=== PATIENT | female | born 1950 | race Caucasian/White ===

== ENCOUNTER 2017-05-02 09:05 | Observation (INO) ==
[2017-05-02] MEDS ORDERED: Aspirin 325 MG TABLET PO ONE (09:13)
--- NOTE | 2017-05-02 09:29 | Emergency Department Note ---
Disposition Clinical Impression: Chest pain Qualifiers: Chest pain type: unspecified Qualified Code(s): R07.9 - Chest pain, unspecified Disposition: Admitted As Inpatient Condition: Good General Adult HPI - General Chief complaint: ED Chest Pain Stated complaint: CP Time Seen by Provider: 05/02/17 09:11 Source: patient Limitations: no limitations Nursing Notes Reviewed: Yes Vital Signs Reviewed: Yes - History of Present Illness HPI Narrative: 66-year-old female who reports for the last week she has developed intermittent chest pain. The chest pain lasts up to 5 minutes and then resolves on its own. She has not had this before. She does not have any cardiac history. She reports her only past medical history is asthma. She denies any cough or shortness of breath associated with it. She denies any fever or any other illness at this time. She reports that she has been procrastinating to come into the emergency department because it goes away so quickly. She does have a family history of cardiac disease. She denies having hyperlipidemia but admits to not seen doctors very often. She is currently 100% pain-free. Pain Scale: 0 Improves with: nothing Worsens with: nothing Associated symptoms: Reports: denies other symptoms Treatments Prior to Arrival: none - Related Data Home Medications Medication Instructions Recorded Confirmed Cetirizine HCl [All Day Allergy] 10 mg PO DAILY 05/02/17 05/02/17 Montelukast [Singulair] 10 mg PO DAILY 05/02/17 05/02/17 Allergies Allergy/AdvReac Type Severity Reaction Status Date / Time acetaminophen [From Tylenol] Allergy Anaphylaxis Verified 05/02/17 10:15 All systems ED: reviewed and negative except as stated. Constitutional: Denies: fever Eyes: Denies: vision change ENT ED: Denies: throat pain Cardiovascular: Reports: chest pain Respiratory: Denies: cough Gastrointestinal: Denies: abdominal pain Musculoskeletal: Denies: back pain Integumentary: Denies: rash Neurological: Denies: headache Endocrine: Denies: fatigue Past Medical History - Past Medical History Medical history: Reports: asthma - Social History Smoking Status: Current every day smoker Physical Exam - General Limitations: no limitations General appearance: alert, in no apparent distress - Head Head exam: atraumatic - Eye Eye exam: Present: normal appearance, PERRL - ENT ENT exam: normal exam - Neck Neck exam: Present: normal inspection - Chest Chest inspection: Present: normal inspection - Respiratory Respiratory exam: Present: normal lung sounds bilaterally. Absent: respiratory distress - Cardiovascular Cardiovascular exam: Present: regular rate, normal rhythm - Abdominal Exam Abdominal exam: Present: soft, Non-Tender - Extremities Exam Extremities exam: Present: normal inspection - Neurological Exam Neurological exam: Present: alert, oriented X3 - Psychiatric Psychiatric exam: Present: normal affect, normal mood Course Course Narrative: She does not have a history of cardiac disease however she has been having intermittent chest discomfort that is new in onset. Her EKG does show some mild new ST depression in the lateral leads. Otherwise unremarkable EKG. due to her age with an onset chest pain and no recent workup and new changes on the EKG we will admit her to the hospital for chest pain rule out. Labwork unremarkable. Will admit. ASA given. Layne accecpts Vital Signs Temperature 98.6 F 05/02/17 09:06 Pulse Rate 95 05/02/17 09:06 Respiratory Rate 18 05/02/17 09:06 Blood Pressure 171/90 05/02/17 09:06 O2 Sat by Pulse Oximetry 97 05/02/17 09:06 Temperature 98.6 F 05/02/17 09:06 Pulse Rate 95 05/02/17 09:06 Respiratory Rate 18 05/02/17 10:33 Blood Pressure 166/84 05/02/17 10:33 O2 Sat by Pulse Oximetry 96 05/02/17 09:17 Oxygen Delivery Oxygen Delivery Room Air Medical Decision Making - Medical Records Medical records reviewed: Yes I reviewed the patient's medical records. - Lab Data Lab results reviewed: Yes I reviewed the patient's lab results. Result diagrams: 05/02/17 09:23 05/02/17 09:23 Lab Results 05/02/17 05/02/17 05/02/17 Range/Units 09:23 09:23 09:23 WBC 10.1 (4.3-11.1) K/mcL RBC 5.56 H (3.82-4.97) M/mcL Hgb 16.3 H (11.5-15.4) g/dL Hct 49.9 H (35.3-44.9) % MCV 89.7 (83.0-100.0) fL MCH 29.3 (28.0-33.3) pg MCHC 32.7 (31.6-35.5) g/dL RDW 14.1 (11.5-14.5) % Plt Count 315 (140-400) K/mcL MPV 9.0 L (9.4-12.4) fL Immature Gran % 0.3 (0-4) % Seg Neutrophils % 51.9 % Lymphocytes % 36.6 % Monocytes % 7.8 % Eosinophils % 2.7 % Basophils % 0.7 % Neutrophils # 5.2 (1.6-8.9) K/mcL Lymphocytes # 3.7 (0.6-4.6) K/mcL Monocytes # 0.8 (0.0-1.3) K/mcL Eosinophils # 0.3 (0.0-0.6) K/mcL Basophils # 0.1 (0.0-0.2) K/mcL PT 10.4 (9.4-12.1) Seconds INR 1.0 APTT 31.1 (26.0-36.0) Seconds Sodium (136-145) mEq/L Potassium (3.5-5.1) mEq/L Chloride (98-107) mEq/L Carbon Dioxide (23-29) mEq/L BUN (8-23) mg/dL Creatinine (0.60-1.20) mg/dL Est GFR ( Amer) (> 60) Est GFR (Non-Af Amer) (> 60) BUN/Creatinine Ratio (6-26) Glucose (70-105) mg/dL Calculated Osmolality (280-300) Calcium (8.6-10.3) mg/dL Troponin I (< 0.04) ng/mL B-Natriuretic Peptide 15 (Less than 100) pg/mL 05/02/17 05/02/17 Range/Units 09:23 09:23 WBC (4.3-11.1) K/mcL RBC (3.82-4.97) M/mcL Hgb (11.5-15.4) g/dL Hct (35.3-44.9) % MCV (83.0-100.0) fL MCH (28.0-33.3) pg MCHC (31.6-35.5) g/dL RDW (11.5-14.5) % Plt Count (140-400) K/mcL MPV (9.4-12.4) fL Immature Gran % (0-4) % Seg Neutrophils % % Lymphocytes % % Monocytes % % Eosinophils % % Basophils % % Neutrophils # (1.6-8.9) K/mcL Lymphocytes # (0.6-4.6) K/mcL Monocytes # (0.0-1.3) K/mcL Eosinophils # (0.0-0.6) K/mcL Basophils # (0.0-0.2) K/mcL PT (9.4-12.1) Seconds INR APTT (26.0-36.0) Seconds Sodium 136 (136-145) mEq/L Potassium 3.8 (3.5-5.1) mEq/L Chloride 104 (98-107) mEq/L Carbon Dioxide 27 (23-29) mEq/L BUN 6 L (8-23) mg/dL Creatinine 0.83 (0.60-1.20) mg/dL Est GFR ( Amer) > 60 (> 60) Est GFR (Non-Af Amer) > 60 (> 60) BUN/Creatinine Ratio 7 (6-26) Glucose 101 (70-105) mg/dL Calculated Osmolality 280 (280-300) Calcium 9.5 (8.6-10.3) mg/dL Troponin I < 0.03 (< 0.04) ng/mL B-Natriuretic Peptide (Less than 100) pg/mL - Radiology Data Radiology results reviewed: Yes I reviewed the patient's radiology results. - EKG Data EKG #1 EKG attestation: Yes I reviewed and interpreted this EKG. EKG shows normal: sinus rhythm Rate: normal Rhythm: NSR [place]/QRS: normal ST segment depression in: II, v5, v6 Attestation Statement - Attestation Attestation: I examined this patient and my medical decision-making was reviewed with the Resident Physician. I agree with the documented findings, disposition and treatment plan as described except to the extent set forth below. Patient with chest pain. Patient describes a left-sided intermittent pressure. It last for a few minutes at a time and resolves on its own. She is currently not having it. No history of coronary disease. On examination she is in no acute distress. Her lungs are clear. Heart regular rate and rhythm. Plan. The patient is chest pain-free here. She received an aspirin. Her EKG has some new mild anterolateral ST depressions. Troponin is negative. She will be admitted for further cardiac workup.
[2017-05-02 09:33] LABS: Basophils # 0.1 K/mcL (0.0-0.2); Basophils % 0.7 %; Eosinophils # 0.3 K/mcL (0.0-0.6); Eosinophils % 2.7 %; Hematocrit 49.9 % (35.3-44.9); Hemoglobin 16.3 g/dL (11.5-15.4); Immature Granulocytes % 0.3 % (0-4); Lymphocytes # 3.7 K/mcL (0.6-4.6); Lymphocytes % 36.6 %; Mean Corpuscular HGB Conc 32.7 g/dL (31.6-35.5); Mean Corpuscular Hemoglobin 29.3 pg (28.0-33.3); Mean Corpuscular Volume 89.7 fL (83.0-100.0); Monocytes # 0.8 K/mcL (0.0-1.3); Monocytes % 7.8 %; Neutrophils # 5.2 K/mcL (1.6-8.9); Platelet Count 315 K/mcL (140-400); Red Blood Count 5.56 M/mcL (3.82-4.97); Red Cell Distribution Width 14.1 % (11.5-14.5); Segmented Neutrophils % 51.9 %
[2017-05-02 09:38] LABS: Prothrombin Time 10.4 Seconds (9.4-12.1)
[2017-05-02 09:41] LABS: Activated Partial Thrombo Time 31.1 Seconds (26.0-36.0)
[2017-05-02 09:46] LABS: BUN/Creatinine Ratio 7 (6-26); Blood Urea Nitrogen 6 mg/dL (8-23); Calcium 9.5 mg/dL (8.6-10.3); Carbon Dioxide 27 mEq/L (23-29); Chloride 104 mEq/L (98-107); Glucose 101 mg/dL (70-105); Osmolality,Calculated 280 (280-300); Potassium 3.8 mEq/L (3.5-5.1); Sodium 136 mEq/L (136-145); eGFR For African Americans > 60 (> 60); eGFR For Non-African Americans > 60 (> 60)
[2017-05-02] MEDS ORDERED: Naloxone 0.4 MG/ML INJ IVP PRN (11:23)
[2017-05-02] MEDS ORDERED: *HR* Morphine 2 MG/ML SYRINGE IVP PRN (11:23)
--- NOTE | 2017-05-02 11:32 | Internal Med History&Physical ---
Date of Encounter: 05/02/17 Time of Encounter: 11:28 Assessment and Plan (1) Chest pain Current visit: Yes Status: Acute 66/female MALIK score: 1 Singulair is the only outpatient medication. Chronic smoker. Admitted for chest pain to rule out ACS protocol. Denies abdominal tenderness/chest wall tenderness. Assessment: Chest pain to rule out acute coronary syndrome. Plan: Admit as observation: Chest pain to rule out ACS protocol. Cardiac diet. Nothing by mouth from midnight. Aspirin 81/metoprolol 12.5/Lipitor 20 Resume home medication. Echocardiogram. Cycle troponin. Repeat labs tomorrow along with hemoglobin A1c. 3 troponins negative and echocardiogram within normal limit then please consider tomorrow stress test. Of note: I have examined this patient in the emergency room #5. Plan of care discussed with the patient. Patient verbalizes understanding. Qualifiers: Chest pain type: unspecified Qualified Code(s): R07.9 - Chest pain, unspecified (2) Obesity (BMI 30.0-34.9) Current visit: Yes Status: Acute Patient need outpatient close monitoring of her body weight. (3) Tobacco consumption Current visit: Yes Status: Acute Discussed at length regarding suggestion of smoking. Patient promises that she will think about the same. (4) DVT prophylaxis Current visit: Yes Status: Acute SCD Medical decision-making: This patient has [id number] risk of worsening in spite of being on appropriate medication due to the underlying mild comorbid conditions Internal Medicine - H&P: HPI Chief complaint: chest pain Admitted From: Emergency Dept Plans for Post Hospital Care: Home History of present illness: PCP: Dr Homero Kahn Brief PMH : ? Bronchial Asthma or allergies. ( visit PCP once a year for singulair) HPI: Patient was complaining of left-sided precordial chest pain which was ongoing for more than a week. Patient claims that in the last 48 hours the intensity and frequency of pain got progressively worse. Patient has sharp, nonradiating, localized, precordial chest pain which was worsening in last 48 hours. Patient claims that the pain gets better only after burping. Patient denies shortness of breath, dizziness, abdominal event, vomiting, diarrhea, dysuria or weakness in extremities. Patient does have a strong family history of for cardiac disease. Workup in the ER: Basic labs were drawn. Initial troponin was negative. Renal function as well as white blood cell count/platelet within normal limits. EKG does show mild ST depression. Reason for admission: Chest pain to rule out ACS. Family history: Strong family history for coronary artery disease. Past Med Surg Social Fam HX - Past Medical History Medical history: asthma - Social History Smoking Status: Current every day smoker Internal Medicine - H&P: Meds Cetirizine HCl [All Day Allergy] 10 mg PO DAILY 05/02/17 [History] Montelukast [Singulair] 10 mg PO DAILY 05/02/17 [History] 3 Allergy/AdvReac Type Severity Reaction Status Date / Time acetaminophen [From Tylenol] Allergy Anaphylaxis Verified 05/02/17 10:15 All Systems PM: A 10-system review of systems was performed and is negative for pertinent findings except as documented above in the HPI. - Constitutional Constitutional: no chills, no fever(s), no night sweats - EENT Eyes: no change in vision, no discharge, no pain, no photophobia Ears: no ear discharge, no ear pain, no tinnitus Nose, mouth and throat: no dysphagia, no nasal discharge, no neck pain, no sore throat - Cardiovascular Cardiovascular ROS IM: chest pain, diaphoresis, no dyspnea, no lightheadedness, no palpitations, no syncope - Respiratory Respiratory: no cough, no dyspnea, no wheezing, no excessive phlegm production - Gastrointestinal Gastrointestinal: no abdominal pain, no diarrhea, no hematemesis, no hematochezia, no melena, no nausea, no vomiting - Genitourinary Genitourinary: no change in urinary stream, no dysuria, no flank pain, no hematuria - Musculoskeletal Musculoskeletal ROS IM: no numbness, no tingling - Integumentary Integumentary IM: no rash, no unusual bruising - Neurological Neurological ROS: no confusion, no convulsions, no focal weakness, no numbness, no tingling, no tremor(s) - Hematologic/Lymphatic Hematologic/Lymphatic: no easy bruising - Constitutional Vitals: Temp Pulse Resp BP Pulse Ox 98.0 F 80 16 134/69 98 05/02/17 10:55 05/02/17 10:55 05/02/17 10:55 05/02/17 10:55 05/02/17 10:55 General appearance: Present: A&O X 3, pleasant, no acute distress, answers questions appropriately - Head Head exam: Present: atraumatic, normocephalic - Eye Eye exam: Present: PERRL, conjuntiva pink, sclera anicteric Pupils: Present: PERRL - Neck Neck exam general surgery: Present: supple, trachea midline. Absent: lymphadenopathy - Respiratory Respiratory exam: Present: CTAB. Absent: accessory muscle use, rales, rhonchi, wheezes - Cardiovascular Cardiovascular exam: Present: RRR, +S1, +S2. Absent: diastolic murmur, gallop, rubs, systolic murmur - GI/Abdominal GI/Abdominal exam: Present: normal bowel sounds, soft, no peritoneal signs. Absent: distended, tenderness - Extremities Exam Extremities exam: Present: warm, radial pulses palpable and symmetrical. Absent : calf tenderness, cyanotic, pedal edema - Neurological Exam Neurological exam: Present: CN II-XII intact, oriented X3, no focal deficits. Absent: pronater drift, facial droop, speech deficit - Skin Skin exam: Present: dry, intact Internal Med - H&P Results - Labs CBC & Chem 7: 05/02/17 09:23 05/02/17 09:23
[2017-05-02] MEDS ORDERED: GI Cocktail 40 ML EACH PO ONE (17:24)
[2017-05-03 00:54] LABS: Basophils # 0.1 K/mcL (0.0-0.2); Basophils % 0.6 %; Eosinophils # 0.3 K/mcL (0.0-0.6); Eosinophils % 2.7 %; Hematocrit 42.4 % (35.3-44.9); Immature Granulocytes % 0.2 % (0-4); Lymphocytes # 4.4 K/mcL (0.6-4.6); Lymphocytes % 43.1 %; Mean Corpuscular HGB Conc 32.3 g/dL (31.6-35.5); Mean Corpuscular Volume 89.8 fL (83.0-100.0); Mean Platelet Volume 9.2 fL (9.4-12.4); Monocytes % 9.8 %; Neutrophils # 4.4 K/mcL (1.6-8.9); Platelet Count 266 K/mcL (140-400); Red Blood Count 4.72 M/mcL (3.82-4.97); Red Cell Distribution Width 14.1 % (11.5-14.5); Segmented Neutrophils % 43.6 %
[2017-05-03 00:59] LABS: Hemoglobin 13.7 g/dL (11.5-15.4)
[2017-05-03 01:02] LABS: Prothrombin Time 10.4 Seconds (9.4-12.1)
[2017-05-03 01:04] LABS: Activated Partial Thrombo Time 30.1 Seconds (26.0-36.0)
[2017-05-03 01:09] LABS: Alanine Aminotransferase 7 Units/L (7-52); Albumin 3.8 g/dL (3.5-5.7); Albumin/Globulin Ratio 1.3 (1.1-2.2); Alkaline Phosphatase 69 Units/L (34-104); Aspartate Amino Transferase 10 Units/L (13-39); BUN/Creatinine Ratio 11 (6-26); Bilirubin,Total 0.3 mg/dL (0.3-1.0); Blood Urea Nitrogen 8 mg/dL (8-23); Carbon Dioxide 27 mEq/L (23-29); Chloride 104 mEq/L (98-107); Chol/HDL Ratio 4.7 (0-4.9); Cholesterol 207 mg/dL (< 200); Glucose 101 mg/dL (70-105); HDL Cholesterol 44 mg/dL (40-59); LDL Cholesterol,Calculated 142 mg/dL (0-99); Magnesium 2.4 mg/dL (1.6-2.6); Osmolality,Calculated 278 (280-300); Phosphorous 3.5 mg/dL (2.7-4.5); Potassium 4.4 mEq/L (3.5-5.1); Sodium 135 mEq/L (136-145); Total Protein 6.8 g/dL (6.4-8.9); Triglycerides 104 mg/dL (< 150); eGFR For African Americans > 60 (> 60); eGFR For Non-African Americans > 60 (> 60)
[2017-05-03 01:15] LABS: Hemoglobin A1C 5.3 %
--- NOTE | 2017-05-03 07:30 | Electrocardiograph Report ---
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
[2017-05-03] MEDS ORDERED: Aspirin Enteric Coated 81 MG Tablet PO SCH (09:00)
[2017-05-03] MEDS ORDERED: Regadenoson 0.4 MG/5 ML SYRINGE IVP ONE (09:32)
[2017-05-03 11:27] VITALS: BP 133/74
--- NOTE | 2017-05-03 13:54 | Discharge Summary ---
Date of Encounter: 05/03/17 Time of Encounter: 12:00 - Discharge Diagnosis (1) Chest pain Priority: Primary Status: Acute Comments: Patient reports one-week history of intermittent chest pressure without radiation. She denies nausea, vomiting, or diaphoresis. Patient has never had a cardiac workup and endorses extensive familly history. Patient reports pain gets better with belching. Chest pain is not reproducible. She denies shortness of breath, nausea or vomiting, diarrhea, abdominal pain. She denies aggravating or relieving factors. She was given a GI cocktail during admission though provided relief. Troponins were negative, EKG was normal sinus rhythm. No signs of an stable, patient's of mild hypertension this morning. Chest x-ray was negative. Echocardiogram with LVEF of 60% and mild LV DD, no significant valvular dysfunction. Stress test was negative for ischemia or infarct with a gated EF of 69%. Description of chest pain and the fact that it was somewhat relieved with GI cocktail indicates this could potentially be GI in nature. I will start patient on omeprazole 20 mg by mouth daily and encourage her to eat smaller, more frequent meals and avoid fried, spicy, fatty foods. She should follow up with primary care for continued evaluation and workup in hospital follow-up visit. Qualifiers: Chest pain type: unspecified Qualified Code(s): R07.9 - Chest pain, unspecified (2) GERD (gastroesophageal reflux disease) Priority: Secondary Status: Suspected Comments: Chest pain suspicious for GERD symptoms. We will start patient on omeprazole 20 mg by mouth daily and she will re-evaluate with primary care provider. Qualifiers: Esophagitis presence: esophagitis presence not specified Qualified Code(s) : K21.9 - Gastro-esophageal reflux disease without esophagitis (3) DVT prophylaxis Priority: Secondary Status: Acute Comments: Early ambulation. (4) Obesity (BMI 30.0-34.9) Priority: Secondary Status: Chronic Comments: Chronic. Encourage lifestyle changes. This could also be beneficial with GERD diagnosis. (5) Tobacco consumption Priority: Secondary Status: Chronic Comments: Patient states that she smokes 1+ packs per day. She states that she has considered smoking cessation and will speak with primary care about it. She is denied nicotine replacement therapy here. (6) HLD (hyperlipidemia) Priority: Secondary Status: Acute Comments: Cholesterol elevated, LDL was also elevated. Dyslipidemia. Encourage lifestyle modifications including low fat low cholesterol diet, increasing exercise. Qualifiers: Hyperlipidemia type: unspecified Qualified Code(s): E78.5 - Hyperlipidemia , unspecified - Discharge Medications Prescriptions: Omeprazole 20 mg PO DAILY #30 tablet. Home Medications: Cetirizine HCl [All Day Allergy] 10 mg PO DAILY 05/02/17 [History] Montelukast [Singulair] 10 mg PO DAILY 05/02/17 [History] Omeprazole 20 mg PO DAILY #30 tablet. 05/03/17 [Rx] Allergies/Adverse Reactions: 3 Allergy/AdvReac Type Severity Reaction Status Date / Time acetaminophen [From Tylenol] Allergy Anaphylaxis Verified 05/02/17 10:15 Procedures/tests Complete & Pending: Procedures Performed prior 72 hours Category Date Time Status NM ashwin perf SPECT multi [NM] Routine Exams 05/03/17 07:43 Taken EV echocardiogram Routine Y 05/02/17 11:25 Completed SP exercise nuclear stress Routine Y 05/03/17 07:43 Completed SP pharm nuclear stress Routine Y 05/03/17 Completed Date of admission: 05/02/17 10:12 Primary care physician: Homero Kahn MD Discharging clinician: Mikayla Mirza Anticipated date of discharge: 05/03/17 - Patient Status Disposition: Home, Self-Care Condition: Good Functional capacity at discharge: independent ambulation Overall status at discharge: patient is back to baseline - Discharge Instructions Follow Up With: Homero Kahn MD [Primary Care Provider] - 05/11/17 10:00 am (This appointment will be with Anastasia Batista CNP.) Additional Instructions: Please follow up with her primary care provider in the next 7-10 days for a follow-up visit. Return to the emergency department immediately if her symptoms worsen or return , or for any other problems or concerns. Medications have been called into pharmacy. I suspect you have GERD. Try to eat smaller, more frequent meals. Avoid spicy , fatty, fried foods. Weight loss is also helpful with symptom relief. Your cholesterol is a little bit elevated. Also again encourage lifestyle modifications including low cholesterol diet and avoiding fatty, or fried foods. Take her medications as directed. Return to normal activities as tolerated. - Diet and Activity Activity: increase activity as tolerated Diet: low fat, low cholesterol Hospital course: Ms. Christy is a 66 year old female with past medical history significant for allergies and GERD. Presented with chest pain. Patient did get some relief with GI cocktail. Stress test and chest x-ray negative, troponins were negative. Echocardiogram with preserved EF and no significant valvular dysfunction. Suspect GERD and will start patient on omeprazole. Patient with newly diagnosed HLD. Both of these diagnoses require lifestyle modifications including weight loss, diet changes. I discussed this with patient and she was agreeable. Vitals and labs are stable and within normal limits. She had some mild hypertension this morning, her medications were held due to stress test. Predischarge blood pressures within normal limits. Patient currently denies chest pain, nausea, vomiting, headache, abdominal pain or diarrhea. She denies shortness of breath or dizziness. Patient is appropriate for discharge. - Time Spent with Patient Total time spent providing and/or coordinating discharge services: Less than 30 minutes - Constitutional Vitals: Temp Pulse Resp BP Pulse Ox 98.7 F 70 16 133/74 96 05/03/17 11:25 05/03/17 11:25 05/03/17 11:25 05/03/17 11:25 05/03/17 11:25 General appearance: Present: A&O X 3, pleasant, no acute distress, obese, answers questions appropriately - Head Head exam: Present: atraumatic, normocephalic - Eye Eye exam: Present: normal appearance, PERRL, conjuntiva pink, sclera anicteric Pupils: Present: PERRL - Neck Neck exam general surgery: Present: supple, trachea midline. Absent: lymphadenopathy - Respiratory Respiratory exam: Present: CTAB. Absent: accessory muscle use, rales, rhonchi, wheezes - Cardiovascular Cardiovascular exam: Present: RRR, +S1, +S2. Absent: diastolic murmur, gallop, rubs, systolic murmur - GI/Abdominal GI/Abdominal exam: Present: normal bowel sounds, soft. Absent: distended, tenderness - Extremities Exam Extremities exam: Present: warm, radial pulses palpable and symmetrical. Absent : calf tenderness, cyanotic, pedal edema - Neurological Exam Neurological exam: Present: alert, oriented X3, no focal deficits. Absent: facial droop, speech deficit - Skin Skin exam: Present: dry, intact, normal color, warm. Absent: rash
== END 2017-05-03 15:28 | disposition home or self-care (01) ==
LOC: EMEROO 09:05 → 3BNU 09:05
PROVIDERS: ADMIT Registered Nurse; ATTEND Registered Nurse

== ENCOUNTER 2021-10-18 13:58 | Observation (INO) ==
[2021-10-18] MEDS ORDERED: Aspirin 325 MG TABLET PO ONE (17:29)
[2021-10-18] MEDS ORDERED: Nitroglycerin 0.4 MG TAB.SUBL SL PRN (17:29)
[2021-10-18 17:45] LABS: Basophils # 0.1 K/mcL (0.0-0.2); Basophils % 0.5 %; Eosinophils # 0.2 K/mcL (0.0-0.6); Eosinophils % 1.7 %; Hematocrit 41.4 % (35.3-44.9); Hemoglobin 13.2 g/dL (11.5-15.4); Immature Granulocytes % 0.2 % (0-4); Lymphocytes # 5.3 K/mcL (0.6-4.6); Lymphocytes % 39.8 %; Mean Corpuscular HGB Conc 31.9 g/dL (31.6-35.5); Mean Corpuscular Hemoglobin 29.8 pg (28.0-33.3); Mean Corpuscular Volume 93.5 fL (83.0-100.0); Mean Platelet Volume 9.5 fL (9.4-12.4); Monocytes # 1.1 K/mcL (0.0-1.3); Monocytes % 8.3 %; Neutrophils # 6.6 K/mcL (1.6-8.9); Platelet Count 299 K/mcL (140-400); Red Blood Count 4.43 M/mcL (3.82-4.97); Red Cell Distribution Width 14.4 % (11.5-14.5); Segmented Neutrophils % 49.5 %; White Blood Count 13.3 K/mcL (4.3-11.1)
[2021-10-18 17:53] LABS: Prothrombin Time 10.8 Seconds (9.4-12.1)
[2021-10-18 17:56] LABS: Activated Partial Thrombo Time 26.3 Seconds (26.0-36.0)
[2021-10-18 18:06] LABS: BUN/Creatinine Ratio 12 (6-26); Blood Urea Nitrogen 10 mg/dL (8-23); Calcium 9.2 mg/dL (8.6-10.3); Carbon Dioxide 29 mEq/L (23-29); Chloride 101 mEq/L (98-107); Glucose 100 mg/dL (70-105); Lipase 16 Units/L (11-82); Osmolality,Calculated 285 (280-300); Potassium 4.1 mEq/L (3.5-5.1); Sodium 138 mEq/L (136-145); eGFR For African Americans > 60 (> 60); eGFR For Non-African Americans > 60 (> 60)
[2021-10-18 18:07] LABS: Troponin I < 0.03 ng/mL (< 0.04)
[2021-10-18] MEDS ORDERED: *HR* Metoprolol 5 MG/5 ML VIAL IVP ONE (19:37)
[2021-10-18] MEDS ORDERED: GI Cocktail 40 ML EACH PO ONE (19:38)
[2021-10-18] MEDS ORDERED: Iopamidol - 370 500 ML MLS IVP ONE (22:15)
[2021-10-19] MEDS ORDERED: Naloxone 0.4 MG/ML INJ IVP PRN (00:20)
[2021-10-19] MEDS ORDERED: Melatonin 3 MG TABLET PO PRN (00:20)
[2021-10-19] MEDS ORDERED: Ondansetron ODT 4 MG TAB.RAPDIS SL PRN (00:20)
[2021-10-19] MEDS: *HR* Enoxaparin 40 MG/0.4 ML SYRINGE SQ SCH (05:35)
[2021-10-19 05:59] LABS: Hematocrit 41.4 % (35.3-44.9); Hemoglobin 13.3 g/dL (11.5-15.4); Mean Corpuscular HGB Conc 32.1 g/dL (31.6-35.5); Mean Corpuscular Hemoglobin 29.9 pg (28.0-33.3); Mean Platelet Volume 9.1 fL (9.4-12.4); Platelet Count 289 K/mcL (140-400); Red Blood Count 4.45 M/mcL (3.82-4.97); Red Cell Distribution Width 14.2 % (11.5-14.5); White Blood Count 13.8 K/mcL (4.3-11.1)
[2021-10-19 06:22] LABS: BUN/Creatinine Ratio 12 (6-26); Blood Urea Nitrogen 9 mg/dL (8-23); Calcium 9.3 mg/dL (8.6-10.3); Carbon Dioxide 26 mEq/L (23-29); Chloride 104 mEq/L (98-107); Glucose 114 mg/dL (70-105); Magnesium 2.1 mg/dL (1.6-2.6); Osmolality,Calculated 284 (280-300); Phosphorous 2.7 mg/dL (2.7-4.5); Potassium 4.1 mEq/L (3.5-5.1); Sodium 137 mEq/L (136-145); Troponin I < 0.03 ng/mL (< 0.04); eGFR For African Americans > 60 (> 60); eGFR For Non-African Americans > 60 (> 60)
[2021-10-19] MEDS: lisinopriL 10 MG TABLET PO SCH (10:06)
[2021-10-19] MEDS: Aspirin 81 MG TAB.CHEW PO SCH (10:06)
[2021-10-19] MEDS ORDERED: carvediloL 6.25 MG TABLET PO SCH (20:00)
[2021-10-20] MEDS: *HR* Enoxaparin 40 MG/0.4 ML SYRINGE SQ SCH (05:13)
[2021-10-20] MEDS ORDERED: Regadenoson 0.4 MG/5 ML SYRINGE IVP ONE (07:01)
[2021-10-20] MEDS ORDERED: carvediloL 6.25 MG TABLET PO SCH (08:00)
[2021-10-20] MEDS ORDERED: Vitamin B Complex/Vit C/Vit E 1 EACH TABLET PO SCH (09:00)
[2021-10-20] MEDS ORDERED: Loratadine 10 MG TABLET PO SCH (09:00)
[2021-10-20] MEDS ORDERED: NON-FORMULARY MEDICATION 1 EACH EACH (Omeprazole 40 MG Capsule.Dr) PO SCH (09:00)
[2021-10-20] MEDS: lisinopriL 10 MG TABLET PO SCH (09:45)
[2021-10-20] MEDS: Aspirin 81 MG TAB.CHEW PO SCH (09:46)
[2021-10-20 10:36] LABS: Estimated Average Glucose 128 mg/dl; Hemoglobin A1C 6.1 %
[2021-10-20 11:38] VITALS: BP 157/77; PULSE 81; TEMP 98.5; O2SAT 96
[2021-10-20 12:38] LABS: Chol/HDL Ratio 4.5 (0-4.9); Cholesterol 235 mg/dL (< 200); HDL Cholesterol 52 mg/dL (40-59); LDL Cholesterol,Calculated 161 mg/dL (< 100); Triglycerides 112 mg/dL (< 150)
== END 2021-10-20 16:45 | disposition home or self-care (01) ==
LOC: 3NENU 13:58 → EMEROOARM 13:58 → SUATTDRO 10-19 00:25 → 3NENU 10-19 02:01
PROVIDERS: ADMIT Internal Medicine; ATTEND Internal Medicine